=== PATIENT | female | born 1970 | race Caucasian/White ===

== ENCOUNTER 2018-12-11 13:29 | Emergency (ER) | payer MEDICAID, OTHER ==
--- NOTE | 2018-12-11 14:10 | EDM.PDOC ---
ED HPI GENERAL MEDICAL PROBLEM - General Chief Complaint: Lower Extremity Injury/Pain Stated Complaint: LEFT ANKLE PAIN Time Seen by Provider: 12/11/18 13:35 Source of Information: Reports: Patient History Limitations: Reports: No Limitations - History of Present Illness INITIAL COMMENTS - FREE TEXT/NARRATIVE: History of present illness: []She rolled her left ankle on the ice 3 days ago and complains of pain on the outside of her ankle and in the back of her leg. She states she heard a pop and has been using crutches since the injury. She denies any other injuries. Review of systems: As per history of present illness and below otherwise all systems reviewed and negative. Past medical history: As per history of present illness and as reviewed below otherwise noncontributory. Surgical history: As per history of present illness and as reviewed below otherwise noncontributory. Social history: No reported history of drug or alcohol abuse. Family history: As per history of present illness and as reviewed below otherwise noncontributory. Physical exam: General: Well developed, well nourished in NAD HEENT: Atraumatic, normocephalic, pupils reactive, negative for conjunctival pallor or scleral icterus, mucous membranes moist, throat clear, neck supple, nontender, trachea midline. Lungs: Clear to auscultation, breath sounds equal bilaterally, chest nontender. Heart: S1S2, regular, negative for clicks, rubs, or JVD. Abdomen: NABS, Soft, nondistended, nontender. Negative for masses or hepatosplenomegaly. Negative for costovertebral tenderness. Pelvis: Stable nontender. Genitourinary: Deferred. Rectal: Deferred. Extremities: Mild swelling over the lateral malleolus tenderness over the distal lateral and posterior leg, negative for cords or calf pain. Neurovascular unremarkable. Neuro: Awake, alert, oriented. Cranial nerves II through XII unremarkable. Cerebellum unremarkable. Motor and sensory unremarkable throughout. Exam nonfocal. Skin:warm and dry Diagnostics: X-ray shows a fibula fracture nondisplaced Therapeutics: Declined pain meds, posterior splint ED Course: Stable Impression: Nondisplaced distal fibular fracture Prescriptions: None Plan: Ibuprofen, ice, elevation, follow up with orthopedics return to ER if symptoms worsen or change. Definitive disposition and diagnosis as appropriate pending reevaluation and review of above. left ankle Pain Score (Numeric/FACES): 5 - Related Data Allergies Allergy/AdvReac Type Severity Reaction Status Date / Time acetaminophen [From Vicodin] Allergy Nausea and Verified 12/11/18 13:41 Vomiting hydrocodone [From Vicodin] Allergy Nausea and Verified 12/11/18 13:41 Vomiting morphine Allergy Nausea and Verified 12/11/18 13:41 Vomiting Home Meds: Home Meds . [No Known Home Meds] 12/11/18 [History] Past Medical History HEENT History: Reports: None Cardiovascular History: Reports: None Respiratory History: Reports: None Gastrointestinal History: Reports: None Genitourinary History: Reports: None APPLIED EXERCISE PHYSIOLOGIST History: Reports: None Musculoskeletal History: Reports: None Neurological History: Reports: None Psychiatric History: Reports: None Endocrine/Metabolic History: Reports: None Hematologic History: Reports: None Immunologic History: Reports: None Oncologic (Cancer) History: Reports: None Dermatologic History: Reports: None - Infectious Disease History Infectious Disease History: Reports: Chicken Pox - Past Surgical History Head Surgeries/Procedures: Reports: None HEENT Surgical History: Reports: None Cardiovascular Surgical History: Reports: None Respiratory Surgical History: Reports: None GI Surgical History: Reports: None Female Surgical History: Reports: Section Endocrine Surgical History: Reports: None Neurological Surgical History: Reports: None Musculoskeletal Surgical History: Reports: Other (See Below) Other Musculoskeletal Surgeries/Procedures:: knee reconstructions Oncologic Surgical History: Reports: None Dermatological Surgical History: Reports: None Social & Family History - Family History Family Medical History: Noncontributory - Tobacco Use Smoking Status *Q: Never Smoker Second Hand Smoke Exposure: No - Caffeine Use Caffeine Use: Reports: Coffee - Recreational Drug Use Recreational Drug Use: No Review of Systems - Review of Systems Review Of Systems: ROS reveals no pertinent complaints other than HPI. ED EXAM, GENERAL - Physical Exam Exam: See Below (ED history of present illness) Course - Vital Signs Last Recorded V/S: Last Vital Signs Temp 96.2 F 12/11/18 13:42 Pulse 80 12/11/18 13:42 Resp 18 12/11/18 13:42 BP 129/60 12/11/18 13:42 Pulse Ox 98 12/11/18 13:42 - Orders/Labs/Meds Orders: Active Orders 24 hr Category Date Time Status Splinting [RC] ASDIRECTED Care 12/11/18 14:05 Ordered Ankle Min 3V Lt [CR] Stat Exams 12/11/18 13:49 Ordered Departure - Departure Time of Disposition: 14:08 Disposition: Home, Self-Care 01 Condition: Good Clinical Impression: Fibula fracture Qualifiers: Encounter type: initial encounter Fibula location: distal Fracture type: closed Fracture morphology: other fracture Laterality: left Qualified Code(s): S82.832A - Other fracture of upper and lower end of left fibula, initial encounter for closed fracture - Discharge Information *PRESCRIPTION DRUG MONITORING PROGRAM REVIEWED*: Not Applicable *COPY OF PRESCRIPTION DRUG MONITORING REPORT IN PATIENT TOMÁS: Not Applicable Additional Instructions: The following information is given to patients seen in the emergency department who are being discharged to home. This information is to outline your options for follow-up care. We provide all patients seen in our emergency department with a follow-up referral. The need for follow-up, as well as the timing and circumstances, are variable depending upon the specifics of your emergency department visit. If you don't have a primary care physician on staff, we will provide you with a referral. We always advise you to contact your personal physician following an emergency department visit to inform them of the circumstance of the visit and for follow-up with them and/or the need for any referrals to a consulting specialist. The emergency department will also refer you to a specialist when appropriate. This referral assures that you have the opportunity for follow-up care with a specialist. All of these measure are taken in an effort to provide you with optimal care, which includes your follow-up. Under all circumstances we always encourage you to contact your private physician who remains a resource for coordinating your care. When calling for follow-up care, please make the office aware that this follow-up is from your recent emergency room visit. If for any reason you are refused follow-up, please contact the [facility] Emergency Department at and asked to speak to the emergency department charge nurse. ice, Elevation, ibuprofen for pain, follow-up with orthopedic return if symptoms worsen or change. [facility] [address], [address] [place] [address] - My Orders Last 24 Hours: My Active Orders 12/11/18 13:49 Ankle Min 3V Lt [CR] Stat 12/11/18 14:05 Splinting [RC] ASDIRECTED - Assessment/Plan Last 24 Hours: My Active Orders 12/11/18 13:49 Ankle Min 3V Lt [CR] Stat 12/11/18 14:05 Splinting [RC] ASDIRECTED
--- NOTE | 2018-12-11 14:27 | CR ---
EXAMINATION: Left ankle HISTORY: Pain COMPARISON: None TECHNIQUE: 3 views FINDINGS/IMPRESSION: There is a nondisplaced distal fibular fracture noted with overlying soft tissue swelling. The remaining osseous structures and joint spaces appear preserved. Early osteophyte formation within the midfoot and a tiny plantar calcaneal spur.
== END 2018-12-11 14:48 | disposition home or self-care (01) ==
LOC: MW.ED 13:29
DX: S82.832A Other fracture of upper and lower end of left fibula, initial encounter for closed fracture (principal); X50.1XXA Overexertion from prolonged static or awkward postures, initial encounter; Z88.8 Allergy status to other drugs, medicaments and biological substances; Z88.5 Allergy status to narcotic agent
CPT/HCPCS: 73610-26-LT; 73610-LT; 99283-25

== ENCOUNTER 2018-12-20 10:48 | Day surgery (SDC) | payer OTHER, MEDICAID ==
[~2018-12-20 10:48] MED LIST: Lactated Ringers 1,000 ML IV SCH; ceFAZolin 2 GM in Premix Bag 1 BAG IV SCH
[2018-12-20] MEDS ORDERED: Bupivacaine 0.25% 10 ML SDV ONE (11:40)
[2018-12-20] MEDS ORDERED: fentaNYL 100 MCG/2 ML SDV ONE ×3 (11:47→15:10)
[2018-12-20] MEDS ORDERED: Propofol 200 MG/20 ML SDV ONE ×2 (11:47→13:31)
[2018-12-20] MEDS ORDERED: Ondansetron 4 MG/2 ML SDV ONE (11:47)
[2018-12-20] MEDS ORDERED: Ketorolac 30 MG/ML SDV ONE (11:48)
[2018-12-20] MEDS ORDERED: Dexamethasone 4 MG/ML 5 ML MDV ONE (11:48)
[2018-12-20] MEDS ORDERED: Midazolam 1 MG/ML 2 ML SDV ONE (11:48)
[2018-12-20] MEDS ORDERED: Glycopyrrolate 0.2 MG/ML SDV ONE ×2 (11:48→14:44)
--- NOTE | 2018-12-20 11:51 | PCM.PREANE ---
Preanesthetic Assessment - Anesthesia/Transfusion/Family Hx Anesthesia History: Prior Anesthesia Without Reaction Family History of Anesthesia Reaction: No Transfusion History: Prior Transfusion Without Reaction Intubation History: Unknown - Review of Systems General: No Symptoms Pulmonary: No Symptoms Cardiovascular: No Symptoms Gastrointestinal: No Symptoms Neurological: No Symptoms Other: Reports: None - Physical Assessment Height: 1.68 m Weight: 90.718 kg ASA Class: 2 Mental Status: Alert & Oriented x3 Airway Class: Mallampati = 2 Dentition: Reports: Normal Dentition Thyro-Mental Finger Breadths: 3 Mouth Opening Finger Breadths: 3 ROM/Head Extension: Full Lungs: Clear to Auscultation, Normal Respiratory Effort Cardiovascular: Regular Rate, Regular Rhythm - Lab Values: Laboratory Last Values Urine HCG, Qual NEGATIVE (NEGATIVE) 12/20/18 11:11 - Allergies Allergies/Adverse Reactions: Allergies Allergy/AdvReac Type Severity Reaction Status Date / Time acetaminophen [From Vicodin] Allergy Nausea and Verified 12/18/18 09:29 Vomiting hydrocodone [From Vicodin] Allergy Nausea and Verified 12/18/18 09:29 Vomiting - Blood Blood Available: No - Anesthesia Plan Pre-Op Medication Ordered: None - Acknowledgements Anesthesia Type Planned: General Anesthesia Pt an Appropriate Candidate for the Planned Anesthesia: Yes Alternatives and Risks of Anesthesia Discussed w Pt/Guardian: Yes Pt/Guardian Understands and Agrees with Anesthesia Plan: Yes PreAnesthesia Questionnaire HEENT History: Reports: Other (See Below) Other HEENT History: uses reading glasses Cardiovascular History: Reports: None Respiratory History: Reports: None Gastrointestinal History: Reports: None Genitourinary History: Reports: None [employer] History: Reports: Musculoskeletal History: Reports: Neck Pain, Chronic, Other (See Below) (left ankle fx. at present time) Neurological History: Reports: Concussion, Other (See Below) Other Neuro History: hx of motion sickness Psychiatric History: Reports: None Endocrine/Metabolic History: Reports: Obesity/BMI 30+ Hematologic History: Reports: Blood Transfusion(s) Immunologic History: Reports: None Oncologic (Cancer) History: Reports: None Dermatologic History: Reports: None - Infectious Disease History Infectious Disease History: Reports: Chicken Pox - Past Surgical History Head Surgeries/Procedures: Reports: None Female Surgical History: Reports: Section (x2) Musculoskeletal Surgical History: Reports: Other (See Below) Other Musculoskeletal Surgeries/Procedures:: Ligament reconstruction in both knees (possible screws) - SUBSTANCE USE Smoking Status *Q: Never Smoker Recreational Drug Use History: No - HOME MEDS Home Medications: Home Meds . [No Known Home Meds] 12/11/18 [History] - CURRENT (IN HOUSE) MEDS Current Meds: Current Medications Cefazolin Sodium/Dextrose 2 gm (/ Premix) 50 mls @ 100 mls/hr IV ONCALL YANNA Lactated Ringer's (Ringers, Lactated) 1,000 mls @ 100 mls/hr IV ASDIRECTED [facility] Oxycodone/Acetaminophen (Percocet 325-5 Mg) 1 - 2 tab PO Q4H PRN PRN Reason: Pain Discontinued Medications Bupivacaine HCl (Sensorcaine-Mpf 0.25%) Confirm Administered Dose 10 ml .ROUTE .STK-MED ONE Stop: 12/20/18 11:41
[2018-12-20] MEDS ORDERED: Acetaminophen/oxyCODONE 325-5 MG Tab PO PRN (12:00)
[2018-12-20] MEDS ORDERED: ceFAZolin 1 GM Vial ONE ×2 (12:28→14:47)
[2018-12-20] MEDS ORDERED: Sodium Chloride 0.9% 20 ML ONE ×2 (12:28→14:47)
--- NOTE | 2018-12-20 14:10 | PCM.OPNOTE ---
- General Post-Op/Procedure Note Date of Surgery/Procedure: 12/20/18 Operative Procedure(s): ORIF left distal fibula Post-Op Diagnosis: L bimalleolar ankle fracture Anesthesia Technique: General LMA Primary Surgeon: Edwige Madrigal EBL in mLs: 5 Condition: Good Free Text/Narrative:: tt=26 min [id number]
[2018-12-20] MEDS ORDERED: HYDROmorphone 2 MG/ML Syringe ONE (14:19)
[2018-12-20] MEDS ORDERED: HYDROmorphone 2 MG/ML SDV IM ONE (14:22)
--- NOTE | 2018-12-20 14:46 | PCM.POSTAN ---
POST ANESTHESIA ASSESSMENT - MENTAL STATUS Mental Status: Alert, Oriented - RESPIRATORY Respiratory Status: Respiratory Rate WNL, Airway Patent, O2 Saturation Stable - CARDIOVASCULAR CV Status: Pulse Rate WNL, Blood Pressure Stable - GASTROINTESTINAL GI Status: No Symptoms - PAIN Pain Score: 6 - POST OP HYDRATION Hydration Status: Adequate & Stable - OBSERVATIONS Free Text/Narrative:: no anesthesia problems
--- NOTE | 2018-12-20 14:49 | OR ---
SURGEON: Edwige Madrigal MD DATE OF PROCEDURE: 12/20/2018 PREOPERATIVE DIAGNOSIS: Left bimalleolar ankle fracture. POSTOPERATIVE DIAGNOSIS: Left bimalleolar ankle fracture. PROCEDURE: Open reduction and internal fixation, left distal fibula. ASSOCIATE FINANCIAL ADVISOR: Alyssa Hampton RN. ANESTHESIA: General. ESTIMATED BLOOD LOSS: 5 mL. TOURNIQUET TIME: 26 minutes. COMPLICATIONS: None. DVT PROPHYLAXIS: PAS boot to the nonoperative leg. IMPLANTS USED: Chastity 7-hole 1/3rd semitubular plate with combination of 3.5 mm cortical screws and 4.0 mm cancellous screws. BRIEF HISTORY: Shwetha is a 47-year-old female who sustained a fall on the ice. She complained of right ankle pain. X-rays were obtained, which showed a fracture of the distal fibula with an avulsion fracture of the medial malleolus. Due to the unstable nature of her injury, I did recommend surgical intervention. The risks and goals of the procedure were discussed with the patient and were documented preoperatively. She agreed to proceed. DESCRIPTION OF PROCEDURE: The patient was properly identified and brought to the operating room. She was transferred from the OR cart and placed on the operating table in supine position. General anesthesia was administered. After adequate anesthesia was obtained, a well-padded tourniquet was applied to the left lower extremity. Left lower extremity was then prepped in standard fashion using ChloraPrep solution. It was then sterilely draped. A time-out was performed to ensure correct site and procedure. Preoperative antibiotics were given. Surgical site had been marked preoperatively. An Esmarch was used to exsanguinate the left lower extremity and the tourniquet was inflated to 250 mmHg. An incision was made over the lateral aspect of the ankle. Subcutaneous tissues were dissected. The superficial peroneal nerve was found to be anterior to the incision, this was protected throughout the procedure. The fracture site was then identified. It was opened and copiously irrigated with saline solution to remove the fracture hematoma. A bone reduction clamp was then used to reduce the fracture. A 3.5 mm cortical screw was then placed in an interfragmentary manner using standard lag technique. This provided good provisional fixation of the fracture. The fracture was quite oblique in nature. I elected to use a 7- hole plate as this did give us three holes proximal to the fracture. A 2.5 mm nonlocking screws were used proximally and two 4.0 mm fully-threaded cancellous screws were used distally. Final C-arm images confirmed acceptable reduction of the fracture with good preservation of the ankle mortise. The syndesmosis was checked using live fluoroscopy with an external rotation stress view as well as a lateral pull with bone hook, and no instability or widening of the syndesmosis was noted. The wound was then copiously irrigated with saline solution. The deep tissues were closed with 0 Vicryl. Subcutaneous tissues were closed with 3- 0 Monocryl, and the skin was closed with kem. Zero arm tourniquet was deflated prior to final wound closure and no excess bleeding was noted. 1% Lidocaine was injected around the incision at the completion of the procedure. Xeroform gauze was placed over the wound and a bulky dressing was applied. She was then placed into a well-padded posterior splint with medial and lateral stabilizing slabs. She was awakened from her anesthetic and transferred back to the operating room cart. She was brought to recovery room in stable condition. All needle and sponge counts were correct. ERICA / SYBIL /[id number]
[2018-12-20] MEDS ORDERED: oxyCODONE 5 MG Tab PO ONE (15:55)
[2018-12-20] MEDS ORDERED: Promethazine 25 MG/ML SDV IM ONE (16:36)
--- NOTE | 2018-12-22 15:46 | CR ---
EXAMINATION: Left ankle HISTORY: ORIF COMPARISON: 12/15/2018 TECHNIQUE: 5 fluoroscopic images provided FINDINGS/IMPRESSION: Operative control films demonstrate screw and plate fixation of a distal fibular fracture.
== END 2018-12-20 18:00 | disposition home or self-care (01) ==
LOC: MW.SDS 10:48
PROVIDERS: ATTEND Orthopaedic Surgery
DX: S82.842A Displaced bimalleolar fracture of left lower leg, initial encounter for closed fracture (principal); E66.9 Obesity, unspecified; Z68.33 Body mass index [BMI] 33.0-33.9, adult; W00.0XXA Fall on same level due to ice and snow, initial encounter; Z88.5 Allergy status to narcotic agent
CPT/HCPCS: 27814; 81025; A9270; C1713; J0131; J0690; J1100; J1170; J1885; J2250; J2405; J2550; J2704; J3010; J3490; J7120